=== PATIENT | male | born 1955 | race Caucasian/White ===

== ENCOUNTER → 2018-04-01 | Outpatient (CLI) | payer OTHER ==
--- NOTE | 2018-04-01 12:32 | PCVCIMAG ---
APPROVED REPORT Indications Stenosis Dizziness and Vertigo Risk Factors Hypertension: Hyperlipidemia Doppler Spectral Velocity Analysis PSV / EDVPSV / EDV ECA (R) 134 / 16 cm/sECA (L) 122 / 17 cm/s dICA (R) 62 / 25 cm/sdICA (L) 59 / 25 cm/s Irene (R) 81 / 29 cm/smICA (L) 79 / 31 cm/s pICA (R) 69 / 22 cm/spICA (L) 72 / 20 cm/s Bulb (R) 68 / 13 cm/sBulb (L) 41 / 10 cm/s dCCA (R) 86 / 18 cm/sdCCA (L) 97 / 20 cm/s mCCA (R) 99 / 21 cm/smCCA (L) 114 / 25 cm/s Vert (R) 57 / 20 cm/sVert (L) 45 / 8 cm/s ICA/CCA 0.94ICA/CCA 0.81 Basic Measurements Blood Pressure: Pulses: Right Left RightLeft Brachial(Sitting) 112/24mrKs738/70mmHgTemporal Real Time B-Mode Imaging Vert. (R)AntegradeVert. (L)Antegrade Findings The right carotid bulb has minimal plaque. The right proximal internal carotid artery shows no significant stenosis. The right common carotid artery shows no significant stenosis. The right external carotid artery shows no significant stenosis. The left carotid bulb has minimal plaque. The left proximal internal carotid artery shows no significant stenosis. The left common carotid artery shows no significant stenosis. The left external carotid artery shows no significant stenosis. Conclusion 1. No significant stenosis involving either carotid artery 2. Antegrade vertebral flow
--- NOTE | 2018-04-01 12:40 | PCVCIMAG ---
APPROVED REPORT Study performed: 04/01/2018 10:56:20 Exam: Stress Echocardiogram Indication: CAD s/p UT,PCI Patient Location: Echo lab Stress Nurse: Patricia Isbell RN Room #: 2 Status: routine Ht: 5 ft 10 in HR: 88 bpm BP: 134/80 mmHg Medical History Medical History: CAD s/p UT,stent,, HTN, Hyperlipidemia Cardiac Risk Factors: HTN, Hyperlipidemia Previous Cardiac Procedures: PCI Pretest Chest Pain Characteristics: No chest pain Exercise History: Physically active Procedure The patient underwent an Exercise Stress Test using the Carlos Protocol. Blood pressure, heart rate, and EKG were monitored. An Echocardiogram was performed by air launch weapons technician in four stages in quad fashion. At peak stress, four selected images were obtained and placed side by side with resting images for comparison. Stress Test Details Stress Test: Exercise stress testing was performed using a Carlos protocol. HR Resting HR: 88 bpmMax Heart Rate (APMHR): 159 bpm Max HR Achieved: 148 bpmTarget HR (85% APMHR): 135 bpm % of APMHR: 93 Recovery HR: 95 bpm HR response to stress: Normal HR response to stress BP Resting BP: 134/80 mmHg Max BP: 160/76 mmHg Recovery BP: 126/76 mmHg ECG Resting ECG: Sinus Rhythm Stress ECG: Sinus Rhythm, NSSTT changes ST Change: Non-ischemic Maximum ST Deviation: 0 mm Arrhythmia: rare PVCs Recovery ECG: Sinus Rhythm, NSSTT changes Recovery ST Change: Non-ischemic Recovery ST Deviation: 0 mm Recovery Arrhythmia: None Clinical Reason for Termination: Maximal effort Stress Symptoms: none Exercise duration: 9 min 01 sec Highest Stage Achieved: Stage 3: 3.4 mph at 14% grade. Exercise capacity: 10.1 METs Overall Exercise Capacity for Age: Average Angina Score: None No complications. Stress ECG Conclusion The patient exercised according to the CARLOS protocol for 9:01 mins; achieving a work level of 10.1 METS. The resting heart rate of 88bpm jayashree to a maximum heart rate of 148 bpm. This value represent 93% of the maximal, age-predicted heart rate. The resting blood pressure of 134/80 mmHg, jayashree to a maximum blood pressure of 160/76 mmHg. The exercise test was stopped due to fatigue. Evangelista Treadmill Score is 9.0 which is Low risk. Pre-Stress Echo The resting Echocardiogram showed normal left ventricular contractility with an estimated Ejection Fraction of about 55-60%. Post-Stress Echo The stress Echocardiogram showed normal left ventricular contractility with an estimated Ejection Fraction of about 65-70%. There is a fixes defect in the basal inferior wall consistent with known old UT. Conclusion Clinical Response: Non-ischemic Exercise Capacity: Average Stress ECG Response: Non-ischemic Stress Echo Images: Non-ischemic No clinical, EKG or echocardiographic evidence for ischemia. No echocardiographic evidence for exercise induced ischemia. Normal stress echocardiogram with maximal exercise stress. <Conclusion> No clinical, EKG or echocardiographic evidence for ischemia. No echocardiographic evidence for exercise induced ischemia. Normal stress echocardiogram with maximal exercise stress.
== END | disposition home or self-care (01) ==
LOC: PCVCIMAG 09:59
PROVIDERS: ATTEND Internal Medicine
DX: I65.23 Occlusion and stenosis of bilateral carotid arteries (principal); I10 Essential (primary) hypertension; R42 Dizziness and giddiness; E78.5 Hyperlipidemia, unspecified
CPT/HCPCS: 93325; 93351; 93880